=== PATIENT | male | born 1970 | race Caucasian/White ===

== ENCOUNTER 2018-05-16 12:34 | Emergency (ER) | payer MEDICAID, MEDICARE ==
[~2018-05-16] VITALS: Ht 188 cm; Wt 71.3 kg
[2018-05-16 12:49] VITALS: BP 122/74
[2018-05-16] MEDS ORDERED: ALBUTEROL/IPRATROPIUM 2.5MG/0.5MG, 3 ML ONE (13:19)
[2018-05-16] MEDS ORDERED: ALBUTEROL/IPRATROPIUM 2.5MG/0.5MG, 3 ML NPPB ONE (13:30)
== END 2018-05-16 13:41 | disposition home or self-care (01) ==
LOC: ED 13:38
DX: J45.31 Mild persistent asthma with (acute) exacerbation (principal); Z76.0 Encounter for issue of repeat prescription
CPT/HCPCS: 94640; 99283; J7620